=== PATIENT | female | born 1980 | race Caucasian/White ===

== ENCOUNTER 2017-01-09 12:55 | Emergency (ER) | payer OTHER ==
--- NOTE | 2017-01-09 13:16 | ER Document Report ---
ED Medical Screen (RME) - General Chief Complaint: Headache Stated Complaint: WEAKNESS TRAVEL OUTSIDE OF THE [place] IN LAST 30 DAYS: No - HPI Notes: 01/09/17 13:15 Patient was cooking when she experienced weakness blurry vision and a headache. Patient states headache has improved vision has improved now is feeling generally weak. - Related Data Allergies/Adverse Reactions: No Known Allergies Allergy (Unverified 01/09/17 13:02) Past Medical History Renal/ Medical History: Denies: Hx Peritoneal Dialysis Review of Systems - Review of Systems Constitutional: Weakness Physical Exam - Vital signs Vitals: Temp Pulse Resp BP Pulse Ox 97.9 F 87 18 137/83 H 98 01/09/17 13:00 01/09/17 13:00 01/09/17 13:00 01/09/17 13:00 01/09/17 13:00 - Cardiovascular Rhythm: Regular Heart sounds: Normal auscultation - Patient is tearful Course - Re-evaluation Re-evalutation: 01/09/17 13:16 I have greeted and performed a rapid initial assessment of this patient. A comprehensive ED assessment and evaluation of the patient, analysis of test results and completion of the medical decision making process will be conducted by additional ED providers. - Vital Signs Vital signs: Temp Pulse Resp BP Pulse Ox 97.9 F 87 18 137/83 H 98 01/09/17 13:00 01/09/17 13:00 01/09/17 13:00 01/09/17 13:00 01/09/17 13:00
--- NOTE | 2017-01-09 13:46 | ER Document Report ---
ED Headache - General Time seen by provider: 13:55 Mode of Arrival: Ambulatory Information source: Patient TRAVEL OUTSIDE OF THE [place] IN LAST 30 DAYS: No - HPI Onset: Just prior to arrival - see HPI note Preceding symptoms: Visual disturbance Associated symptoms: Double/blurred vision, Motor/sensory loss to arm, Other - headache Similar symptoms previously: No Recently seen / treated by doctor: No <SHIVANI SANCHEZ - Last Filed: 01/09/17 14:39> <VIRGINIE RUIZ - Last Filed: 01/09/17 15:02> - General Chief Complaint: Headache Stated Complaint: WEAKNESS Notes: Patient is a 36 year old female presenting to the emergency department for weakness, blurry vision, and headache. Patient states she was starting to cook some food this morning for her children around 11:30. Patient states she was looking at her phone and she was unable to focus on the left side of the keyboard of her phone. She states she could see the right side clearly but was unable to see the left side clearly. Patient states either just before the vision changes or right after she had a slight headache. Patient states her pain was located in her right sikhism. Patient states she then felt like she was going to pass out. Patient also states she had a cold/clamy feeling and weakness or "slowness" to her entire left arm. Patient states she feels very weak now. After sitting on the couch for a while her vision returned to normal and she does not have a headache any longer. Patient has no medical problems and is not taking any medications. Patient has no known allergies. (SHIVANI SANCHEZ) - Related Data Allergies/Adverse Reactions: No Known Allergies Allergy (Unverified 01/09/17 13:02) Past Medical History - Social History Smoking Status: Never Smoker Cigarette use (# per day): No Chew tobacco use (# tins/day): No Frequency of alcohol use: None Drug Abuse: None Family History: DM, Hypertension Patient has suicidal ideation: No Patient has homicidal ideation: No - Medical History Medical History: Negative Surgical Hx: Negative <SHIVANI SANCHEZ - Last Filed: 01/09/17 14:39> Review of Systems - Review of Systems Constitutional: See HPI, Weakness EENT: See HPI, Blurred vision Cardiovascular: No symptoms reported Respiratory: No symptoms reported Gastrointestinal: No symptoms reported Genitourinary: No symptoms reported Female Genitourinary: No symptoms reported Musculoskeletal: No symptoms reported Skin: No symptoms reported Hematologic/Lymphatic: No symptoms reported Neurological/Psychological: No symptoms reported, See HPI, Weakness -: Yes All other systems reviewed and negative <SHIVANI SANCHEZ - Last Filed: 01/09/17 14:39> Physical Exam <SHIVANI SANCHEZ - Last Filed: 01/09/17 14:39> - Vital signs Interpretation: Hypertensive - Mildly <VIRGINIE RUIZ - Last Filed: 01/09/17 15:02> - Vital signs Vitals: Temp Pulse Resp BP Pulse Ox 97.9 F 87 18 137/83 H 98 01/09/17 13:00 01/09/17 13:00 01/09/17 13:00 01/09/17 13:00 01/09/17 13:00 - Notes Notes: GENERAL: VS as per nursing doc. Well-appearing, well-nourished and in no acute distress. HEAD: Atraumatic, normocephalic. EYES: Pupils equal round and reactive to light, extraocular movements intact, sclera anicteric, no conjunctival injection or discharge. ENT: Nares patent, oropharynx clear without exudates. Moist mucous membranes. NECK: Normal range of motion, supple, no carotid bruits. LUNGS: Breath sounds clear to auscultation bilaterally and equal. No wheezes rales or rhonchi. HEART: Normal S1S2. Regular rate and rhythm without murmurs. Equal peripheral pulses. ABDOMEN: Soft, non-tender. No appreciable mass. EXTREMITIES: Normal range of motion. No calf tenderness. Negative Homans. No edema. NEUROLOGICAL: GCS 15, Cranial nerves II-XII intact. Normal visual mensah. Normal speech without aphasia. No pronator drift. 5/5 RUE strength, 5/5 RLE strength, 5/5 LUE strength, 5/5 LLE strength. No cerebellar abnormalities including normal finger-nose testing. Negative Babinski, 2+= DTR refelexes. Normal Gait PSYCH: Normal mood, normal affect. SKIN: Warm, Dry, no cyanosis, Cap refill < 2 sec. (ARMANDOVIRGINIE SIDDIQUI) Course - Laboratory Result Diagrams: 01/09/17 13:20 01/09/17 13:20 <SHIVANI SANCHEZ - Last Filed: 01/09/17 14:39> - Laboratory Result Diagrams: 01/09/17 13:20 01/09/17 13:20 - EKG Interpretation by Me EKG shows normal: Sinus rhythm Rate: Normal Rhythm: NSR [place]/QRS: No: Right axis deviation, Left axis deviation, RBBB, LBBB, IVCD, LAHB/ LAFB, LPHB/LPFB, Bifasicular block Voltage: No: Increased voltage, Consistant with LVH, Decreased voltage, Throughout, Limb leads P Waves: No: MARIA EUGENIA, LAE, Absent, AV Dissociation, Other Heart block present: No: 1st Degree, Mobitz 1, Mobitz 2, CHB (3rd degree block) <VIRGINIE RUIZ - Last Filed: 01/09/17 15:02> - Re-evaluation Re-evalutation: 01/09/17 14:54 The patient is asymptomatic now except for a minimal amount of right temporal headache. No signs of temporal arteritis by exam. This seems more consistent with a migraine variant. There are no objective neurologic signs. He did seem a little odd that she described a left hemianopsia but only when looking with both eyes. When covering each eye when she was having the symptoms, it would resolve. She had some paresthesias of the left upper extremity with she stated slow movements of her thumb. There did not seem to be any real significant weakness. Her lower extremities were uninvolved. As her symptoms have completely resolved essentially, she would prefer outpatient follow-up but understands warning signs to watch for (VIRGINIE RUIZ) - Vital Signs Vital signs: Temp Pulse Resp BP Pulse Ox 97.9 F 83 18 136/72 H 98 01/09/17 13:00 01/09/17 13:45 01/09/17 13:50 01/09/17 13:45 01/09/17 13:00 - Laboratory Laboratory results interpreted by me: 01/09/17 13:20 Est GFR (Non-Af Amer) 58 L Discharge <SHIVANI SANCHEZ - Last Filed: 01/09/17 14:39> <VIRGINIE RUIZ - Last Filed: 01/09/17 15:02> - Discharge Clinical Impression: Headache, Vision changes Condition: Good Disposition: HOME, SELF-CARE Instructions: Headache ([facility]) Additional Instructions: Follow-up with your primary care physician. Return if you're worsening or for other concern. Referrals: [facility] [Outside] - Follow up in 3-5 days () Viktoriyae Attestation: 01/09/17 15:01 I personally performed the services described in the documentation, reviewed and edited the documentation which was dictated to the scribe in my presence, and it accurately records my words and actions. (VIRGINIE RUIZ) Scribe Documentation - Scribe Written by Aide:: Shivani Sanchez 01/09/17 14:50 acting as scribe for :: Armando <SHIVANI SANCHEZ - Last Filed: 01/09/17 14:39>
[2017-01-09 13:57] LABS: ABSOLUTE BASOPHILS # (AUTO) 0.1 10^3/uL (0.0-0.2); ABSOLUTE EOSINOPHILS # (AUTO) 0.3 10^3/uL (0.0-0.6); ABSOLUTE LYMPHOCYTES (AUTO) 2.6 10^3/uL (0.5-4.7); ABSOLUTE MONOCYTES (AUTO) 0.5 10^3/uL (0.1-1.4); ABSOLUTE NEUT (AUTO) 5.4 10^3/uL (1.7-8.2); APPEARANCE,URINE CLEAR; BASOPHILS % (AUTO) 0.8 % (0-2); BILIRUBIN,URINE NEGATIVE (NEGATIVE); EOSINOPHILS % (AUTO) 2.9 % (0-6); GLUCOSE, URINE NEGATIVE (NEGATIVE); HEMATOCRIT 40.7 % (36.0-47.0); HEMOGLOBIN 13.7 g/dL (12.0-15.5); HGB HCT DIFFERENCE 0.4; KETONES,URINE NEGATIVE (NEGATIVE); LEUKOCYTE ESTERASE,URINE NEGATIVE (NEGATIVE); LYMPHOCYTES % (AUTO) 29.2 % (13-45); MEAN CORPUSCULAR HEMOGLOBIN 29.5 pg (27.0-33.4); MEAN CORPUSCULAR HGB CONC 33.6 g/dL (32.0-36.0); MEAN CORPUSCULAR VOLUME 88 fl (80-97); MONOCYTES % (AUTO) 5.9 % (3-13); NITRITE,URINE NEGATIVE (NEGATIVE); PROTEIN,URINE NEGATIVE (NEGATIVE); RED BLOOD COUNT 4.62 10^6/uL (3.72-5.28); RED CELL DISTRIBUTION WIDTH 13.7 % (11.5-14.0); SEGMENTED NEUTROPHILS % (AUTO) 61.2 % (42-78); URINE SPECIFIC GRAVITY 1.006; UROBILINOGEN,URINE NEGATIVE mg/dL (<2.0); WHITE BLOOD COUNT 8.8 10^3/uL (4.0-10.5)
[2017-01-09 14:13] LABS: ALANINE AMINOTRANSFERASE 30 U/L (9-52); ALBUMIN 4.5 g/dL (3.5-5.0); ALCOHOL < 10 mg/dL (NONE DETECTED); ALKALINE PHOSPHATASE 79 U/L (38-126); ANION GAP 14 (5-19); ASPARTATE AMINO TRANSFERASE 16 U/L (14-36); BILIRUBIN,DIRECT 0.3 mg/dL (0.0-0.4); BILIRUBIN,TOTAL 0.7 mg/dL (0.2-1.3); BLOOD UREA NITROGEN 14 mg/dL (7-20); CALCIUM 9.5 mg/dL (8.4-10.2); CARBON DIOXIDE 30 mmol/L (22-30); CHLORIDE 100 mmol/L (98-107); CREATININE RESULT 1.08 mg/dL (0.52-1.25); GLUCOSE 104 mg/dL (75-110); LIPASE 116.1 U/L (23-300); POTASSIUM 4.3 mmol/L (3.6-5.0); SODIUM 143.5 mmol/L (137-145)
[2017-01-09 14:19] LABS: URINE BARBITURATES SCREEN NEGATIVE; URINE METHADONE SCREEN NEGATIVE; URINE OPIATES LOW NEGATIVE; URINE PHENCYCLIDINE SCREEN NEGATIVE
[2017-01-09 15:30] VITALS: BP 124/71
--- NOTE | 2017-01-09 20:42 | EKG REPORT ---
SEVERITY:- NORMAL ECG - SINUS RHYTHM : Confirmed by: Keri Brown 09-Jan-2017 20:41:45
== END 2017-01-09 15:30 | disposition home or self-care (01) ==
LOC: ER 12:55
DX: R51 Headache (principal); H53.8 Other visual disturbances; R53.1 Weakness
CPT/HCPCS: 36415; 70450; 80053; 80307; 81001; 83690; 83735; 84703; 85025; 93005; 93010; 99284